=== PATIENT | female | born 2000 | race Caucasian/White ===

== ENCOUNTER 2022-01-31 16:56 | Emergency (ER) | payer BC, SELFPAY ==
[2022-01-31 17:13] VITALS: BP 112/71; PULSE 92; RESP 20; TEMP 37.3; O2SAT 100
--- NOTE | 2022-01-31 17:50 | ED.GENADULT ---
HPI - General Adult General Chief complaint: Upper Respiratory Infection Stated complaint: Sore Throat Source: patient Mode of arrival: ambulatory Limitations: no limitations History of Present Illness HPI narrative: Patient presents for evaluation of sore throat since this morning. She indicates yesterday she had a scratchy throat . She woke from sleep with significant pain this morning. She has a history of strep. Her current symptoms feel consistent with strep but worse. No fever, chills, nausea, vomiting, respiratory symptoms, fatigue, body aches. No recent sick contacts to her knowledge. She does have bilateral otalgia. She does not smoke marijuana or cigarettes. No additional complaints or concerns. Related Data Allergies Allergy/AdvReac Type Severity Reaction Status Date / Time No Known Allergies Allergy Verified 01/31/22 18:04 Review of Systems Review of Systems: CONSTITUTIONAL: Denies fever, chills, or sweats. EYES: Denies visual changes, redness, or discharge. ENT: Reports sore throat and bilateral otalgiaq. Denies rhinorrhea, congestion CARDIOVASCULAR: Denies chest pain, palpitations, or edema. RESPIRATORY: Denies cough or dyspnea. GASTROINTESTINAL: Denies abdominal pain, nausea, vomiting, or diarrhea. GENITOURINARY: Denies dysuria or hematuria. SKIN: Denies rash or itching. MUSCULOSKELETAL: Denies back pain, joint pain, or myalgia. NEUROLOGIC: Denies headache, numbness, dizziness, or weakness. PSYCHIATRIC: Denies anxiety or depression. [facility] Past Medical History Medical History (Updated 01/31/22 @ 18:20 by Estrada Granda, [place], ) Recurrent streptococcal tonsillitis Surgical History Surgical History No pertinent past surgical history Family History Family History Mother Family history non-contributory Social History Social History Smoking status: Never smoker Substance use: never Occupation/Education: student Gender identity (if verbalized by the patient): Female Spiritual care concerns: No Exam Narrative: GENERAL: Well-appearing, well-nourished, and in no acute distress. HEAD: Normocephalic, atraumatic. EYES: PERRLA and EOMI. ENT: Nares clear, no rhinorrhea or epistaxis. Mucous membranes moist. Bilateral tonsillar enlargement with erythema and white exudate. Uvula is midline. Bilateral TMs pearly simental nonbulging NECK: Supple. No adenopathy or masses. No carotid bruits or JVD CHEST: Clear to auscultation. No respiratory distress. No wheezes rales or rhonchi HEART: Regular rate and rhythm. No murmur heard. Normal peripheral pulses. ABDOMEN: Soft, nontender, nondistended, normal active bowel sounds. EXTREMITIES: Normal range of motion. No edema. SKIN: Warm, dry, no rash. NEURO: No focal deficits. Alert and oriented x3. PSYCH: Tearful. Normal mood and affect. Course Course Emergency Course: This is a 21-year-old female present with complaints of sore throat. On exam she has bilateral tonsillar enlargement with white exudate. Strep was negative. She was given Decadron 10 mg orally. Symptoms improved. Will tx with amoxicillin. Doubt peritonsillar abscess as she has bilateral tonsillar enlargement and her uvula is midline. However I did advise she go to the ER in the event that her symptoms persist despite antibiotics were in the event that she develops any difficulty breathing or swallowing. She should follow up outpatient for further evaluation and treatment and return for worsening symptoms. Pt in agreement with plan of care. Level of Care: Express Care Visit Vital Signs Vital signs: Vital Signs Temperature 37.3 C 01/31/22 17:13 Pulse Rate 92 01/31/22 17:13 Respiratory Rate 20 01/31/22 17:13 Blood Pressure 112/71 01/31/22 17:13 Pulse Oximetry 100 01/31/22 17:13 Oxyg
== END 2022-01-31 18:43 | disposition home or self-care (01) ==
PROVIDERS: Emergency Provider Nurse Practitioner
DX: J02.9 Acute pharyngitis, unspecified (principal)
CPT/HCPCS: 87081; 87880; 99213; G0463; J1100